=== PATIENT | male | born 1950 | race Caucasian/White ===

== ENCOUNTER 2020-08-05 01:34 | Emergency (ER) | payer OTHER ==
[~2020-08-05] VITALS: Ht 185.4 cm; Wt 80.0 kg
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
--- NOTE | 2020-08-05 01:55 | NUR ---
[facility] NO CHANGE IN CONDITION.
[2020-08-05] MEDS ORDERED: DIPH,PERTUSS(ACELL),TET VAC/PF 0.5 ML IM-VACC ONE ×2 (02:00→03:18)
[2020-08-05 02:02] LABS: BASOPHILS % (AUTO) 1 % (0-1); EOSINOPHILS % (AUTO) 1 % (1-7); LYMPHOCYTES % (AUTO) 36 % (22-44); MD NO; MEAN CORPUSCULAR HEMOGLOBIN 33.6 pg (27.5-34.5); MEAN CORPUSCULAR HGB CONC 33.4 g/dL (33.2-36.2); MEAN PLATELET VOLUME 9.2 fL (7.4-10.4); MONOCYTES % (AUTO) 11 % (2-9); NEUTROPHILS % (AUTO) 51 % (42-75); PLATELET COUNT 232 x10^3/uL (130-400); RED CELL DISTRIBUTION WIDTH 13.9 % (9.4-14.8)
[2020-08-05 02:07] LABS: ALBUMIN 3.5 g/dL (3.4-5.0); ANION GAP 8 mmol/L (5-15); CALCIUM 8.2 mg/dL (8.5-10.1); CHLORIDE 105 mmol/L (98-107); INTERNATIONAL NORMALIZED RATIO 1.21 (0.93-1.1); PROTHROMBIN TIME 12.5 Seconds (9.6-11.5)
[2020-08-05] MEDS ORDERED: FERR325T16 PO (02:17)
[2020-08-05] MEDS ORDERED: INSU100C5 SQ-INSULIN (02:17)
[2020-08-05] MEDS ORDERED: CYAN100028 PO (02:17)
[2020-08-05] MEDS ORDERED: AMLO10TA8 PO (02:17)
[2020-08-05] MEDS ORDERED: TAMS-11 PO (02:17)
[2020-08-05] MEDS ORDERED: RIVA20TA PO (02:17)
[2020-08-05] MEDS ORDERED: MAGN420T PO (02:17)
[2020-08-05] MEDS ORDERED: AMIO100T4 PO (02:17)
[2020-08-05] MEDS ORDERED: OMEG-206 PEG (02:17)
[2020-08-05] MEDS ORDERED: ATOR10TA9 PO (02:17)
[2020-08-05] MEDS ORDERED: INSU100V8 SQ (02:17)
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
--- NOTE | 2020-08-05 02:50 | NUR ---
PLASTIC PARTS DESIGNER: CT CONTROL MADE AWARE OF ORDER FOR MRI. SHOE PARTS MOLDER TO BE CALLED IN PENDING PRIMARY RN OBTAINING MRI SCREENING FORM.
--- NOTE | 2020-08-05 03:23 | NUR ---
PT MEDICATED PER MAR, DENIES ADDITIONAL NEEDS AT THIS TIME, WAITING FOR MRI, WATCHING TV. WCTM.
--- NOTE | 2020-08-05 03:40 | NUR ---
LATE ENTRY D/T PT CARE: PT TO MRI VIA [facility], NO CHANGE IN CONDITION.
--- NOTE | 2020-08-05 04:20 | NUR ---
PT BACK FROM MRI, RESTING ON [facility], STATES HE WANTS WATER, INFORMED WE NEED TO WAIT FOR MRI RESULTS. WCTM. WAITING FOR MRI READ
[2020-08-05 04:32] VITALS: BP 113/71
--- NOTE | 2020-08-05 04:33 | NUR ---
TASK RN PT PROVIDED BLANKETS REQ, NADN RESP EVEN AND UNLABORED
--- NOTE | 2020-08-05 05:40 | NUR ---
PT NAD, APPEARS COMFORTABLE, NAD, PROVIDED URINAL, DENIES ADDITIONAL NEEDS, WAITING FOR MRI READ, WCTM.
[2020-08-05] MEDS ORDERED: NEOSPORIN OINT. PKT 1 PACKET ONE (06:08)
--- NOTE | 2020-08-05 06:49 | NUR ---
ankit, , called to pick pt up, this copywriting intern dc paperwork with both her and pt. Both verbalized understanding, denied any other questions or needs at this time. NAD. WCTM until arrived. bedside report to vidhi cotto, pt care transferred at this time. Addendum: 08/05/20 at 0700 by MAMI REPORT TO NICOLLE COTTO, NOT VIDHI
--- NOTE | 2020-08-05 07:38 | NUR ---
DPatient/Caregiver given discharge instructions and they have confirmed that they understand the instructions. Patient ambulatory with steady gait.
== END 2020-08-05 07:40 | disposition home or self-care (01) ==
LOC: ED 02:45
DX: S06.0X0A Concussion without loss of consciousness, initial encounter (principal); S50.811A Abrasion of right forearm, initial encounter; S50.812A Abrasion of left forearm, initial encounter; S00.81XA Abrasion of other part of head, initial encounter; F10.129 Alcohol abuse with intoxication, unspecified; R41.82 Altered mental status, unspecified; I48.91 Unspecified atrial fibrillation; I10 Essential (primary) hypertension; F17.200 Nicotine dependence, unspecified, uncomplicated; W01.0XXA Fall on same level from slipping, tripping and stumbling without subsequent striking against object, initial encounter; Y93.89 Activity, other specified; Y92.89 Other specified places as the place of occurrence of the external cause; Y99.8 Other external cause status; Y90.9 Presence of alcohol in blood, level not specified
CPT/HCPCS: 36415; 70450; 71045; 72125; 72141; 80048; 80307; 82040; 85025; 85610; 85730; 90471; 90715; 93005; 99285